=== PATIENT | female | born 1990 | race Caucasian/White ===

== ENCOUNTER 2019-05-20 10:41 | Emergency (ER) | payer MEDICAID ==
[~2019-05-20] VITALS: Ht 175.3 cm; Wt 94.0 kg
[2019-05-20 10:46] VITALS: BP 134/85
[2019-05-20] MEDS ORDERED: CLIN300C70 PO (11:37)
[2019-05-20] MEDS ORDERED: ONDA4TAB6 PO (11:37)
[2019-05-20] MEDS ORDERED: IBUP-1984 PO (11:37)
[2019-05-20] MEDS ORDERED: ondansetron 4mg rapidly disintigrating tab PO ONE (11:40)
[2019-05-20] MEDS ORDERED: ibuprofen tablet 400 MG TABLET PO ONE (11:40)
== END 2019-05-20 11:56 | disposition home or self-care (01) ==
LOC: ER 10:43
DX: K04.7 Periapical abscess without sinus (principal); K02.9 Dental caries, unspecified; Z88.1 Allergy status to other antibiotic agents
CPT/HCPCS: 99283

== ENCOUNTER 2019-05-21 19:31 | Emergency (ER) | payer MEDICAID ==
[~2019-05-21] VITALS: Ht 175.3 cm; Wt 90.0 kg
[~2019-05-21 19:31] MED LIST: CLIN300C70 PO; IBUP-1984 PO; ONDA4TAB6 PO
--- NOTE | 2019-05-21 20:03 | NUR ---
PATIENT HERE YESTERDAY AND PRESCRIBED CLINDAMYCIN AND IBUPROFEN FOR TOOTH PROBLEMS. RETURNS DUE TO "BLOOD SPURTED IN MY MOUTH" AND UNRELIEVED PAIN. PATIENT DOES NOT WANT NARCOTICS.
[2019-05-21] MEDS ORDERED: bupivacaine 0.25%/epinephrine 1:200,000 inj (contains preserv. MDV) IJ ONE (20:40)
[2019-05-21 21:37] VITALS: BP 129/69
== END 2019-05-21 21:41 | disposition home or self-care (01) ==
LOC: ER 19:32
DX: K04.7 Periapical abscess without sinus (principal); K02.9 Dental caries, unspecified; F15.90 Other stimulant use, unspecified, uncomplicated; Z88.1 Allergy status to other antibiotic agents
CPT/HCPCS: 64400; 99284

== ENCOUNTER 2019-07-02 15:07 | Emergency (ER) | payer MEDICAID ==
[~2019-07-02] VITALS: Ht 175.3 cm; Wt 93.0 kg
[~2019-07-02 15:07] MED LIST changes: +ACET-812 PO; +CLIN150C8 PO; -CLIN300C70 PO
[2019-07-02 15:17] VITALS: BP 108/71
[2019-07-02] MEDS ORDERED: ketorolac tromethamine 15mg/ml inj. IM ONE (16:00)
[2019-07-02] MEDS ORDERED: IBUP-1984 PO (16:04)
== END 2019-07-02 16:26 | disposition home or self-care (01) ==
LOC: ER 15:08
DX: S39.012A Strain of muscle, fascia and tendon of lower back, initial encounter (principal); M25.551 Pain in right hip; F15.90 Other stimulant use, unspecified, uncomplicated; Z88.0 Allergy status to penicillin; Z79.2 Long term (current) use of antibiotics; Z79.899 Other long term (current) drug therapy; X58.XXXA Exposure to other specified factors, initial encounter; Y93.89 Activity, other specified; Y92.89 Other specified places as the place of occurrence of the external cause; Y99.8 Other external cause status
CPT/HCPCS: 96372; 99283; J1885

== ENCOUNTER 2019-09-08 08:27 | Emergency (ER) | payer MEDICAID ==
[~2019-09-08] VITALS: Ht 175.3 cm; Wt 95.0 kg
[~2019-09-08 08:27] MED LIST changes: -IBUP-1984 PO
[2019-09-08] MEDS ORDERED: sucralfate 1 gm tablet PO ONE (08:50)
[2019-09-08] MEDS ORDERED: ondansetron 4mg rapidly disintigrating tab PO ONE (08:50)
[2019-09-08] MEDS ORDERED: mag hydrox/Alum hydrox/simeth 30ml oral suspension PO ONE (08:50)
[2019-09-08] MEDS ORDERED: LIDOcaine Viscous 15ml cup MM ONE (08:50)
[2019-09-08] MEDS ORDERED: ONDA4TAB6 PO (09:13)
[2019-09-08 09:27] VITALS: BP 130/85
== END 2019-09-08 09:28 | disposition home or self-care (01) ==
LOC: ER 08:28
DX: K29.00 Acute gastritis without bleeding (principal); F15.90 Other stimulant use, unspecified, uncomplicated; Z88.1 Allergy status to other antibiotic agents; Z79.899 Other long term (current) drug therapy
CPT/HCPCS: 99284

== ENCOUNTER 2020-01-07 08:04 | Emergency (ER) | payer MEDICAID ==
[~2020-01-07] VITALS: Ht 175.3 cm; Wt 85.9 kg
[2020-01-07 08:31] LABS: BASOPHILS # (AUTO) 0.1 X10'3 (0-0.2); BASOPHILS % (AUTO) 0.8 % (0-1); EOSINOPHILS # (AUTO) 0.3 X10'3 (0-0.9); EOSINOPHILS % (AUTO) 4.5 % (0-6); HEMATOCRIT 41.1 % (35.0-45.0); HEMOGLOBIN 13.5 g/dl (12.0-16.0); LYMPHOCYTES # (AUTO) 2.3 X10'3 (1.1-4.8); LYMPHOCYTES % (AUTO) 30.3 % (21-51); MEAN CORPUSCULAR HEMOGLOBIN 27.3 PG (27.0-31.0); MEAN CORPUSCULAR HGB CONC 32.9 g/dL (33.0-36.5); MEAN PLATELET VOLUME 7.6 FL (7.4-10.4); MONOCYTES # (AUTO) 0.5 X10'3 (0-0.9); NEUTROPHILS # (AUTO) 4.3 X10'3 (1.8-7.7); NEUTROPHILS % (AUTO) 57.4 % (42-75); PLATELET COUNT 342 X10'3 (140-440); RED BLOOD COUNT 4.95 X10'6 (4.20-5.60); RED CELL DISTRIBUTION WIDTH 14.9 % (11.5-14.5); WHITE BLOOD COUNT 7.5 X10'3 (4.5-11.0)
[2020-01-07 08:32] LABS: CLARITY,URINE TURBID (Clear); COLOR,URINE YELLOW (Yellow); GLUCOSE, URINE NEGATIVE (Neg); KETONES,URINE TRACE mg/dl (Neg); LEUKOCYTE ESTERASE ,URINE SMALL (Neg); NITRITES, URINE NEGATIVE (Neg); OCCULT BLOOD,URINE NEGATIVE (Neg); PROTEIN,URINE TRACE mg/dl (Neg); UROBILINOGEN,URINE 0.2 E.U/dL (0.2-1.0)
[2020-01-07 08:37] LABS: UA COLLECTION TYPE CLN CATCH MIDSTREAM
[2020-01-07 08:40] LABS: MUCUS STRANDS MODERATE /LPF (Neg); SQUAMOUS EPITHELIAL CELL,UR MANY /LPF (FEW)
[2020-01-07 08:41] LABS: RBC,URINE 0-2 /HPF (0-2); WBC,URINE 20-30 /HPF (0-4)
[2020-01-07 08:42] LABS: BACTERIA,URINE 2+ /HPF (Neg)
[2020-01-07 08:46] LABS: URINE HCG NEGATIVE (NEG)
[2020-01-07] MEDS ORDERED: normal saline 1000ML IV soln IVB ONE (08:50)
[2020-01-07] MEDS ORDERED: metoclopramide 5 mg/ml inj IV ONE (08:50)
[2020-01-07 08:57] LABS: ALANINE AMINOTRANSFERASE 37 U/L (12-78); ALBUMIN 3.7 G/DL (3.4-5.0); ALBUMIN/GLOBULIN RATIO 0.8 (1.1-1.5); ALKALINE PHOSPHATASE 59 IU/L (46-116); AMYLASE 32 U/L (25-115); ANION GAP 9 (8-16); ASPARTATE AMINO TRANSFERASE 26 U/L (10-37); BILIRUBIN,TOTAL 0.6 MG/DL (0.1-1.0); BLOOD UREA NITROGEN 13 MG/DL (7-18); BUN/CREATININE RATIO 17.3 (6.6-38.0); CALCIUM 10.5 MG/DL (8.5-10.1); CHLORIDE 104 MMOL/L (99-107); CREATININE 0.75 MG/DL (0.40-0.90); GLUCOSE 92 MG/DL (70-104); LIPASE 88 U/L (73-393); POTASSIUM 4.1 MMOL/L (3.5-5.1); SODIUM 138 MMOL/L (135-145); TOTAL CARBON DIOXIDE 25.4 MMOL/L (24-32); TOTAL PROTEIN 8.2 G/DL (6.4-8.2); eGFR > 90 ML/MIN
[2020-01-07] MEDS ORDERED: MAG-154 PO (09:10)
[2020-01-07 10:16] VITALS: BP 109/73
== END 2020-01-07 10:19 | disposition home or self-care (01) ==
LOC: ER 08:05
DX: R10.84 Generalized abdominal pain (principal); R11.2 Nausea with vomiting, unspecified; Z72.89 Other problems related to lifestyle; Z88.0 Allergy status to penicillin; Z79.2 Long term (current) use of antibiotics; Z79.899 Other long term (current) drug therapy
CPT/HCPCS: 36415; 80053; 81001; 81025; 82150; 83690; 85025; 96361; 96374; 99283; J2765; J7030

== ENCOUNTER 2020-03-12 18:03 | Emergency (ER) | payer MEDICAID ==
[~2020-03-12] VITALS: Ht 175.3 cm; Wt 80.0 kg
[~2020-03-12 18:03] MED LIST changes: +MAG-154 PO
[2020-03-12] MEDS ORDERED: CefTRIAXone 250MG IM Kit w/LIDOcaine IM ONE (18:45)
[2020-03-12] MEDS ORDERED: azithromycin 250mg tablet PO ONE ×2 (18:45→19:10)
[2020-03-12 18:51] LABS: URINE HCG NEGATIVE (NEG)
--- NOTE | 2020-03-12 18:58 | NUR ---
witness with md to female gynecological exam. Patient tolerated exam weell without complaints medium speculum with light was used. no complaints from patient just states tendersnees with exam patien educated in PAP exam Q 3 years
[2020-03-12] MEDS ORDERED: gentamicin 40 MG/1 ML inj IV ONE (19:10)
[2020-03-12 19:11] LABS: CLARITY,URINE CLEAR (Clear); COLOR,URINE YELLOW (Yellow); GLUCOSE, URINE NEGATIVE (Neg); KETONES,URINE NEGATIVE (Neg); LEUKOCYTE ESTERASE ,URINE SMALL (Neg); NITRITES, URINE NEGATIVE (Neg); OCCULT BLOOD,URINE NEGATIVE (Neg); PROTEIN,URINE NEGATIVE (Neg); UROBILINOGEN,URINE 0.2 E.U/dL (0.2-1.0)
[2020-03-12] MEDS ORDERED: gentamicin 40 MG/1 ML inj IM ONE (19:15)
[2020-03-12 19:18] LABS: UA COLLECTION TYPE NON-SPECIFIED
[2020-03-12 19:19] LABS: BACTERIA,URINE FEW /HPF (Neg); RBC,URINE NONE SEEN /HPF (0-2); SQUAMOUS EPITHELIAL CELL,UR FEW /LPF (FEW)
[2020-03-12] MEDS ORDERED: PHEN-824 PO (19:34)
[2020-03-12] MEDS ORDERED: SULF1TAB49 PO (19:34)
[2020-03-12 19:48] VITALS: BP 119/66
== END 2020-03-12 19:50 | disposition home or self-care (01) ==
LOC: ER 18:04
DX: N39.0 Urinary tract infection, site not specified (principal); R10.84 Generalized abdominal pain; Z20.2 Contact with and (suspected) exposure to infections with a predominantly sexual mode of transmission; Z72.89 Other problems related to lifestyle; Z88.1 Allergy status to other antibiotic agents; Z79.2 Long term (current) use of antibiotics; Z79.899 Other long term (current) drug therapy
CPT/HCPCS: 36415; 81001; 81025; 87088; 87210; 87491; 87591; 96372; 99283; J1580; Q0112

== ENCOUNTER 2020-03-30 12:49 | Emergency (ER) | payer MEDICAID ==
[~2020-03-30] VITALS: Ht 175.3 cm; Wt 86.0 kg
[~2020-03-30 12:49] MED LIST changes: +PHEN-824 PO
[2020-03-30 12:59] VITALS: BP 104/62
[2020-03-30 15:04] LABS: URINE HCG POSITIVE (NEG)
[2020-03-30 15:08] LABS: COLOR,URINE YELLOW (Yellow); GLUCOSE, URINE NEGATIVE (Neg); KETONES,URINE NEGATIVE (Neg); LEUKOCYTE ESTERASE ,URINE NEGATIVE (Neg); NITRITES, URINE NEGATIVE (Neg); OCCULT BLOOD,URINE NEGATIVE (Neg); PROTEIN,URINE NEGATIVE (Neg); UROBILINOGEN,URINE 0.2 E.U/dL (0.2-1.0)
[2020-03-30 15:24] LABS: CLARITY,URINE SLIGHTLY CLOUDY (Clear); UA COLLECTION TYPE CLN CATCH MIDSTREAM
[2020-03-30 15:25] LABS: RBC,URINE NONE SEEN /HPF (0-2); WBC,URINE 0-4 /HPF (0-4)
[2020-03-30 15:26] LABS: BACTERIA,URINE FEW /HPF (Neg); MUCUS STRANDS MANY /LPF (Neg); SQUAMOUS EPITHELIAL CELL,UR FEW /LPF (FEW)
[2020-03-30] MEDS ORDERED: CLOT21CR7 VG (16:15)
== END 2020-03-30 16:31 | disposition home or self-care (01) ==
LOC: ER 12:49
DX: O98.811 Other maternal infectious and parasitic diseases complicating pregnancy, first trimester (principal); B37.9 Candidiasis, unspecified; N89.8 Other specified noninflammatory disorders of vagina; Z72.89 Other problems related to lifestyle; Z88.1 Allergy status to other antibiotic agents; Z79.899 Other long term (current) drug therapy; Z3A.00 Weeks of gestation of pregnancy not specified
CPT/HCPCS: 81001; 81025; 99283; 99284

== ENCOUNTER 2020-05-22 10:38 | Emergency (ER) | payer MEDICAID ==
[~2020-05-22] VITALS: Ht 175.3 cm; Wt 89.2 kg
[~2020-05-22 10:38] MED LIST changes: +CLOT21CR7 VG
[2020-05-22 11:35] LABS: CLARITY,URINE SLIGHTLY CLOUDY (Clear); COLOR,URINE YELLOW (Yellow); GLUCOSE, URINE NEGATIVE (Neg); KETONES,URINE NEGATIVE (Neg); LEUKOCYTE ESTERASE ,URINE TRACE (Neg); NITRITES, URINE NEGATIVE (Neg); OCCULT BLOOD,URINE NEGATIVE (Neg); PROTEIN,URINE NEGATIVE (Neg); UROBILINOGEN,URINE 0.2 E.U/dL (0.2-1.0)
[2020-05-22 12:05] LABS: UA COLLECTION TYPE CLN CATCH MIDSTREAM
--- NOTE | 2020-05-22 12:06 | NUR ---
REJECTED FOR CULTURE
[2020-05-22 12:07] LABS: BACTERIA,URINE 2+ /HPF (Neg); MUCUS STRANDS FEW /LPF (Neg); SQUAMOUS EPITHELIAL CELL,UR MANY /LPF (FEW)
[2020-05-22 12:44] VITALS: BP 115/75
[2020-05-22 14:15] LABS: BASOPHILS # (AUTO) 0.1 X10'3 (0-0.2); BASOPHILS % (AUTO) 0.7 % (0-1); EOSINOPHILS # (AUTO) 0.3 X10'3 (0-0.9); EOSINOPHILS % (AUTO) 3.3 % (0-6); HEMATOCRIT 39.3 % (35.0-45.0); HEMOGLOBIN 13.2 g/dl (12.0-16.0); LYMPHOCYTES # (AUTO) 2.8 X10'3 (1.1-4.8); LYMPHOCYTES % (AUTO) 32.9 % (21-51); MEAN CORPUSCULAR HEMOGLOBIN 28.8 PG (27.0-31.0); MEAN CORPUSCULAR HGB CONC 33.6 g/dL (33.0-36.5); MEAN CORPUSCULAR VOLUME 85.5 FL (78-98); MEAN PLATELET VOLUME 7.8 FL (7.4-10.4); MONOCYTES # (AUTO) 0.5 X10'3 (0-0.9); MONOCYTES % (AUTO) 6.1 % (2-12); NEUTROPHILS # (AUTO) 4.9 X10'3 (1.8-7.7); PLATELET COUNT 289 X10'3 (140-440); WHITE BLOOD COUNT 8.6 X10'3 (4.5-11.0)
[2020-05-22 14:24] LABS: CLARITY,URINE CLEAR (Clear); COLOR,URINE YELLOW (Yellow); GLUCOSE, URINE NEGATIVE (Neg); KETONES,URINE 15 mg/dl (Neg); LEUKOCYTE ESTERASE ,URINE SMALL (Neg); NITRITES, URINE NEGATIVE (Neg); OCCULT BLOOD,URINE NEGATIVE (Neg); PROTEIN,URINE NEGATIVE (Neg); UROBILINOGEN,URINE 0.2 E.U/dL (0.2-1.0)
[2020-05-22 14:26] LABS: UA COLLECTION TYPE CLN CATCH MIDSTREAM
[2020-05-22 14:27] LABS: BACTERIA,URINE FEW /HPF (Neg); MUCUS STRANDS FEW /LPF (Neg); RBC,URINE NONE SEEN /HPF (0-2); SQUAMOUS EPITHELIAL CELL,UR MODERATE /LPF (FEW); WBC,URINE 0-4 /HPF (0-4)
[2020-05-22 14:30] LABS: ALANINE AMINOTRANSFERASE 37 U/L (12-78); ALBUMIN 3.1 G/DL (3.4-5.0); ALBUMIN/GLOBULIN RATIO 0.7 (1.1-1.5); ALKALINE PHOSPHATASE 49 IU/L (46-116); ANION GAP 8 (8-16); ASPARTATE AMINO TRANSFERASE 23 U/L (10-37); BILIRUBIN,TOTAL 0.3 MG/DL (0.1-1.0); BLOOD UREA NITROGEN 15 MG/DL (7-18); BUN/CREATININE RATIO 30.6 (6.6-38.0); CALCIUM 10.3 MG/DL (8.5-10.1); CHLORIDE 103 MMOL/L (99-107); CREATININE 0.49 MG/DL (0.40-0.90); GLUCOSE 80 MG/DL (70-104); SODIUM 135 MMOL/L (135-145); TOTAL CARBON DIOXIDE 24.2 MMOL/L (24-32); TOTAL PROTEIN 7.5 G/DL (6.4-8.2); eGFR > 90 ML/MIN
[2020-05-22] MEDS ORDERED: DOXY1TAB3 PO (15:07)
[2020-05-22] MEDS ORDERED: CEPH-572 PO (15:07)
[2020-05-22] MEDS ORDERED: cephalexin 250mg capsule PO ONE (15:10)
== END 2020-05-22 15:30 | disposition home or self-care (01) ==
LOC: ER 10:39
DX: O28.8 Other abnormal findings on antenatal screening of mother (principal); Z3A.12 12 weeks gestation of pregnancy; Z72.89 Other problems related to lifestyle; Z88.1 Allergy status to other antibiotic agents; Z79.2 Long term (current) use of antibiotics; Z79.899 Other long term (current) drug therapy
CPT/HCPCS: 36415; 80053; 81001; 85025; 87088; 99283

== ENCOUNTER 2020-09-15 08:37 | Emergency (ER) | payer MEDICAID ==
[~2020-09-15] VITALS: Ht 170.2 cm; Wt 94.7 kg
[~2020-09-15 08:37] MED LIST changes: +DOXY1TAB3 PO
[2020-09-15 09:47] VITALS: BP 114/72
== END 2020-09-15 09:48 | disposition home or self-care (01) ==
LOC: ER 08:37
DX: O47.02 False labor before 37 completed weeks of gestation, second trimester (principal); O46.92 Antepartum hemorrhage, unspecified, second trimester; Z86.19 Personal history of other infectious and parasitic diseases; Z72.89 Other problems related to lifestyle; Z88.1 Allergy status to other antibiotic agents; Z79.899 Other long term (current) drug therapy; Z3A.20 20 weeks gestation of pregnancy
CPT/HCPCS: 99281; 99284